=== PATIENT | female | born 1980 | race Two or more races ===

== ENCOUNTER 2017-04-09 00:50 | Emergency (ER) | payer OTHER ==
[~2017-04-09] VITALS: Ht 152.4 cm; Wt 44.5 kg
--- NOTE | ~2017-04-09 | CR58 ---
[facility] A Service of [facility] & [facility] RADIOLOGY TEXT RESULTS PATIENT: GIANCARLO GREEN LOCATION: [facility] : 82 UNIT #: [id number] AGE: [address]: Destinee Sawyer APRN SEX: F ORDER DR: [id number] [facility] [address] [place], [place] [address] [id number] MR#: [id number] Acc #: [id number] NAME: GIANCARLO GREEN : 1980 SEX: F STUDY DATE/TIME: 04/09/2017 04:55 UNIT: [facility] ROOM: STUDY DESCRIPTION: CR Cervical Spine 2 or 3 Views Attending Physician: Destinee Sawyer A.P.R.N. Ordering Physician: Destinee Sawyer A.P.R.N. Primary Care Physician: [facility] MEDICAL IMAGING REPORT This report is preliminary unless electronic signature is present EXAM Cervical spine 04/09/2017 at 04:55 INDICATION Neck pain for 2 weeks. No trauma. FINDINGS Four views of the cervical spine are compared with 05/17/2015. No fracture or subluxation is seen. Prevertebral soft tissues are normal. There is degenerative disc space narrowing at C5-6. IMPRESSION Degenerative disc disease at C5-6, otherwise negative cervical spine. Dictated by... Silas Brian Jr., M.D. THIS IS AN ELECTRONICALLY VERIFIED REPORT Silas Brian Jr., M.D. at 04/09/2017 9:41 PM JANNA/ammon TD: 04/09/2017 10:27 JOB #: [id number] MEDICAL IMAGING REPORT Page 1 of 1 COPY
[~2017-04-09 00:50] MED LIST: BENZONATATE PO; CIPRO250 MG PO; NO MEDICATIONS; PHENERGAN25 MG PO; ZITHROMAX1 G/PKT PO; ZOFRAN ODT4 MG PO
== END 2017-04-09 06:30 | disposition home or self-care (01) ==
LOC: CED 00:50
DX: G89.29 Other chronic pain (principal); M54.2 Cervicalgia; Z98.51 Tubal ligation status
CPT/HCPCS: 72040; 84703; 96372; 99283; J1885